=== PATIENT | male | born 1975 | race Caucasian/White ===

== ENCOUNTER 2016-06-28 09:36 | Day surgery (SDC) | payer BC ==
[2016-06-28] MEDS ORDERED: PROPOFOL 10 MG/ML VIAL IV ONE (14:08)
[2016-06-28] MEDS ORDERED: FENTANYL PF 100MCG/2ML VIAL IV ONE (14:08)
--- NOTE | 2016-07-02 09:00 | Operative Note ---
DATE OF SURGERY: 06/28/2016 SURGEON: Bam Lyons MD OPERATION: 1. ESOPHAGOGASTRODUODENOSCOPY. 2. COLONOSCOPY. INDICATIONS: This is a 41-year-old male with a history of lower abdominal pain with history of abnormal imaging studies that demonstrated a colitis recently while he was in the hospital and now presented for both esophagogastroduodenoscopy and colonoscopy. POSTOPERATIVE DIAGNOSES: 1. Mild gastritis. 2. Normal duodenum. 3. Normal colon. ANESTHESIA: Sedation is per Anesthesia. Pulse oximetry was monitored throughout the procedure to maintain O2 saturation of 90% or greater. Supplemental oxygen was administered via nasal cannula. Cardiac and vital signs were monitored throughout the duration of the procedure, and they were stable. The procedure of esophagogastroduodenoscopy and colonoscopy and risks and benefits of the procedure, including the risk of bleeding and perforation, among others, were explained to the patient who voiced understanding and desired to have the procedure done. Physical examination was performed, and the patient was found stable for sedation. PROCEDURE: The patient was placed in the left lateral position. Sedation was initiated. A plastic bite block was inserted into the oral cavity. The Olympus TXO670 gastroscope was introduced into the oral cavity and advanced to the proximal esophagus without difficulty. The esophageal mucosa was carefully examined upon introduction of the gastroscope. The proximal, mid, and distal esophageal mucosa appeared normal. The gastroscope was then advanced into the stomach, and surveillance of the stomach revealed mild erythema along the gastric body and antrum but no ulcers were noted. The gastroscope was then advanced to the descending duodenum without difficulty. The duodenal bulb and descending duodenum appeared normal. The gastroscope was then withdrawn into the stomach and retroflexion was performed. There were no other lesions noted. The gastroscope was then straightened and withdrawn while carefully examining the gastric and esophageal mucosa. No other lesions noted. Multiple duodenal biopsies were obtained. He remained with stable vital signs and was repositioned for colonoscopy. A digital rectal exam was performed and showed some mild external hemorrhoids with no palpable rectal masses. An Olympus PCF-180AL colonoscope was then inserted into the rectum under direct visualization. It was advanced to the cecum without difficulty. The ileocecal valve and appendiceal orifice were identified and photographed. The colonic mucosa was carefully examined upon introduction of the colonoscope. There were no lesions noted. The colonoscope was then withdrawn while carefully examining the colonic mucosal surfaces. No other lesions were noted. Random colon biopsies were obtained. The colonoscope was then withdrawn into the rectum, and retroflexion was performed. There were no other lesions noted. The colonoscope was then withdrawn and the procedure was terminated. The patient tolerated the procedure well without any immediate complications. He remained with stable vital signs and was transferred to the recovery room. RECOMMENDATIONS: 1. He is to be on a high-fiber diet. 2. He should continue with his proton pump inhibitors. 3. He is to have a repeat colonoscopy at age 50. Thank you for allowing me to participate in the care of your patient. Bam Lyons MD CC: Dr. Nohelia CORDOVA
== END 2016-06-28 11:28 | disposition home or self-care (01) ==
LOC: HOP 09:36
PROVIDERS: ATTEND Internal Medicine Gastroenterology
DX: K29.50 Unspecified chronic gastritis without bleeding (principal); Z12.11 Encounter for screening for malignant neoplasm of colon
CPT/HCPCS: 43239; 45380; 00740; J3010

== ENCOUNTER 2018-06-25 06:39 | Day surgery (SDC) | payer BC ==
[2018-06-25] MEDS ORDERED: LIDOCAINE 2% MDV (20MG/ML) 20ML VIAL IV ONE (06:40)
[2018-06-25] MEDS ORDERED: PROPOFOL 10 MG/ML VIAL IV ONE (06:40)
--- NOTE | 2018-06-26 10:21 | Operative Note ---
DATE OF SURGERY: 06/25/2018 OPERATION: ESOPHAGOGASTRODUODENOSCOPY with biopsy. PREOPERATIVE DIAGNOSIS: Dyspepsia and heartburn. POSTOPERATIVE DIAGNOSES: 1. Irregular GE junction. 2. Changes suggestive of mild eosinophilic esophagitis. PROCEDURE: After informed consent was obtained from the patient, he was placed in the left lateral decubitus position in the endoscopy suite, sedated and monitored by the department of anesthesia. A well-lubricated [id number] gastroscope was placed in the posterior oropharynx under direct visualization, passed to the proximal esophagus. There were some longitudinal furrows in the distal esophagus. The GE junction was slightly irregular. No mass lesions were noted. There was also a large-caliber GE junction ring. The gastric body, antrum, pylorus, duodenal bulb, and sweep were unremarkable. J-turn views of the proximal stomach were unrevealing. The endoscope was then straightened. GE junction biopsies were obtained. Random distal esophageal biopsies were obtained. The endoscope was removed from the patient with no new findings noted. RECOMMENDATIONS: I would suggest the patient use his PPI daily rather than every other day. We will await results of tissue histology of biopsies obtained today. As always, thank you for allowing me to participate in the healthcare of your patients. CC: DO ART Celeste
== END 2018-06-25 08:20 | disposition home or self-care (01) ==
LOC: HOP 06:39
PROVIDERS: ATTEND Internal Medicine Gastroenterology
DX: R10.13 Epigastric pain (principal); R12 Heartburn; K31.9 Disease of stomach and duodenum, unspecified; K22.2 Esophageal obstruction; K20.9 Esophagitis, unspecified; E78.00 Pure hypercholesterolemia, unspecified

== ENCOUNTER 2018-09-17 06:36 | Day surgery (SDC) | payer BC ==
[2018-09-17] MEDS ORDERED: LIDOCAINE 2% MDV (20MG/ML) 20ML VIAL IV ONE (06:37)
[2018-09-17] MEDS ORDERED: PROPOFOL 10 MG/ML VIAL IV ONE (06:37)
[2018-09-17] MEDS ORDERED: FENTANYL PF 100MCG/2ML VIAL IV ONE (06:37)
--- NOTE | 2018-09-18 08:00 | Operative Note ---
DATE OF SURGERY: 09/17/2018 OPERATION: ESOPHAGOGASTRODUODENOSCOPY with biopsy. PREOPERATIVE DIAGNOSIS: Eosinophilic esophagitis followup. POSTOPERATIVE DIAGNOSIS: Normal-appearing exam. PROCEDURE: After informed consent was obtained from the patient, he was placed in the left lateral decubitus position in the endoscopy suite, sedated and monitored by the department of anesthesia. Once sedated, a well-lubricated [id number] gastroscope was placed in the posterior oropharynx under direct visualization and passed to the proximal esophagus. The endoscope was advanced through the proximal, mid, and distal esophagus. The esophagus demonstrated no ringed changes and no longitudinal furrows. The esophagus essentially appeared unremarkable as did the GE junction, gastric body, antrum, pylorus, duodenal bulb and sweep. J-turn views of the proximal stomach were unrevealing. The endoscope was then straightened and retracted into the distal esophagus where random biopsies were obtained. The endoscope was removed from the patient with no new findings noted. RECOMMENDATIONS: I would suggest the patient continue on a daily PPI. I will see him in followup as needed, and we will await the results of biopsies. As always, thank you for allowing me to participate in the healthcare of your patients. CC: DO ART Celeste
== END 2018-09-17 08:20 | disposition home or self-care (01) ==
LOC: HOP 06:36
PROVIDERS: ATTEND Internal Medicine Gastroenterology
DX: K20.0 Eosinophilic esophagitis (principal); E78.00 Pure hypercholesterolemia, unspecified